=== PATIENT | male | born 1940 | race Caucasian/White ===

== ENCOUNTER 2017-06-30 10:09 | Inpatient (IN) ==
[2017-06-30] MEDS ORDERED: PANTOPRAZOLE 40 MG VIAL IV ONE ×2 (10:15→13:27)
[2017-06-30] MEDS ORDERED: 0.9 % SODIUM CHLORIDE 1,000 ML IV ONE (10:16)
[2017-06-30] MEDS ORDERED: 0.9 % SODIUM CHLORIDE 250 ML IV SCH ×3 (10:30→14:00)
[2017-06-30] MEDS ORDERED: LIDOCAINE JEL 2% 1 TUBE 30GM TOPICAL ONE (10:33)
--- NOTE | 2017-06-30 10:52 | XRay Report ---
CLINICAL INFORMATION: Hematemesis. Black stools. TECHNIQUE: AP supine and left lateral decubitus abdomen COMPARISON: None. FINDINGS: There is a dialysis catheter within the abdomen. There is a large gauge right central venous catheter with its tip in the right atrium Bowel gas pattern is unremarkable. No mechanical small bowel obstruction. No biliary or portal venous gas. No pneumoperitoneum. There is extensive vascular calcification consistent with diabetes in this patient with renal failure. IMPRESSION: 1. Negative bowel gas pattern. No mechanical small bowel obstruction 2. No acute or focal abnormality. Interpreted and Authenticated by: Jose Eduardo Jones 06/30/17
[2017-06-30 10:57] LABS: Basophils # (Auto) 0 K/mcL (0.0-0.3); Basophils % (Auto) 0.2 % (0.0-2.0); Eosinophils # (Auto) 0.2 K/mcL (0.0-0.7); Eosinophils % (Auto) 2.2 % (0.0-7.0); Granulocytes % (Auto) 71.2 % (38.0-78.0); Lymphocytes # (Auto) 1.6 K/mcL (1.5-4.8); Lymphocytes % (Auto) 19.6 % (15.5-49.0); Mean Cell Volume 98.2 fL (80.0-100.0); Mean Corpuscular HGB Conc 32.5 g/dL (31.0-36.0); Mean Corpuscular Hemoglobin 31.9 pg (26.0-34.0); Monocytes # (Auto) 0.6 K/mcL (0.1-0.9); Monocytes % (Auto) 6.8 % (1.0-12.0); Platelet Count 173 K/mcL (140-440); RBC 2.51 M/mcL (4.50-5.90)
--- NOTE | 2017-06-30 11:05 | Emergency Department Note ---
GI Bleed HPI - General Chief complaint: Rectal Bleed Stated complaint: blood in stools, vomiting blood Time Seen by Provider: 06/30/17 11:03 Source: EMS Mode of arrival: wheelchair - History of Present Illness HPI Narrative: Patient has been having episodes of melena yesterday stools have been dark. This morning he vomited up some coffee-ground emesis one time... States sent to [place] in the spring and was given 3 units of blood at that time but they did not find the source of the bleed. He said 4 years ago he had a GI UAC in which they found a lesion in his stomach for years ago. Is not having any abdominal pain but is feeling nauseous. He has had melena 24 hours one episode of hematemesis. Is a history of chronic kidney disease is on dialysis they are planning on trying to do dialysis at home today and I make that appointment. todays hemoglobinis 8.0 hematocrit 24.7 previous hemoglobin reveals in the 5 and 6 range. in 2014,,. Stools are guiac positive today. - Related Data Home Medications Medication Instructions Recorded Confirmed cyanocobalamin (vit B-12) 2,500 2,500 mcg SUBLINGUAL QDAY tab 12/07/14 05/06/17 mcg sublingual tablet glucosamine HCl 1,500 mg tablet 1,500 mg PO QDAY 08/13/15 05/06/17 acetaminophen 500 mg tablet 1,000 mg PO Q6H PRN 05/01/16 05/06/17 carvedilol 25 mg tablet 25 mg PO BID 05/01/16 05/06/17 clopidogrel 75 mg tablet 75 mg PO QDAY 01/19/17 05/06/17 lisinopril 2.5 mg tablet 2.5 mg PO QDAY 01/19/17 05/06/17 omega-3 fatty acids 1,000 mg 1,000 mg PO QDAY 01/19/17 05/06/17 capsule Aspirin [Lo-Dose Aspirin EC] 81 mg PO DAILY 05/06/17 05/06/17 Levothyroxine [Synthroid] 50 mcg PO DAILY 05/06/17 05/06/17 Previous Rx's Medication Instructions Recorded Walking Cart #1 each 12/29/16 atorvastatin 10 mg tablet 10 mg PO QDAY #90 tab 02/17/17 Ciprofloxacin [Cipro] 250 mg PO DAILY #9 tab 05/06/17 furosemide 80 mg tablet 80 mg PO QDAY #90 tab 05/06/17 vitamin B complex-vitamin C 100 1 tab-cap PO QDAY #90 tab 05/06/17 mg-folic acid 1 mg tablet tamsulosin 0.4 mg capsule 0.4 mg PO QDAY #30 cap 05/07/17 Allergies Allergy/AdvReac Type Severity Reaction Status Date / Time No Known Drug Allergies Allergy Verified 05/06/17 16:08 Review of Systems All systems ED: reviewed and negative except as stated. Gastrointestinal: Reports: nausea, melena, hematemesis. Denies: vomiting, diarrhea, constipation, hematochezia Genitourinary: Denies: dysuria, frequency, urgency Musculoskeletal: Denies: back pain, joint swelling Integumentary: Denies: rash, lesions Neurological: Denies: headache, weakness Psychiatric: Denies: anxiety, depression Endocrine: Denies: fatigue Hematological/Lymphatic: Denies: easy bleeding Allergic/Immunologic: Denies: facial swelling Past Medical History - Past Medical History Medical history: Reports: arthritis, cancer, CHF, DM, GI bleed, hyperlipidemia, hypertension, renal disease, thyroid disease, valvular heart disease Surgical history ED: Reports: other (Mitral heart valve repair) - Social History smoking status: Never smoker Alcohol use: Reports: None Drug use: Reports: none Physical Exam Limitations: no limitations General appearance: alert Head: atraumatic, normocephalic Eye: Present: normal appearance, PERRL. Absent: EOMI, scleral icterus ENT: normal exam, normal oropharynx, mucous membranes moist Neck: Present: normal inspection, full ROM. Absent: trachea midline Chest: Present: normal inspection, symmetric chest wall rise. Absent: tenderness Respiratory: Present: normal lung sounds bilaterally, respiratory distress. Absent: wheezes Cardiovascular: Present: regular rate, normal rhythm. Absent: bradycardia, tachycardia Abdominal: Present: soft, distention. Absent: tenderness, guarding, rebound Rectal: Present: normal inspection, heme (+) stool Extremities: Present: normal inspection, full ROM. Absent: tenderness Back: Present: normal inspection, full ROM Neurological: Present: alert, oriented X3, CN II-XII intact Psychiatric: Present: normal affect, normal mood. Absent: depressed, agitated Course Vital Signs Temperature 97.8 F 01/09/18 10:10 Pulse Rate 117 H 06/30/17 10:10 Respiratory Rate 26 H 06/30/17 10:10 Blood Pressure 105/69 06/30/17 10:10 Pulse Oximetry (%) 98 06/30/17 10:10 Temperature 97.8 F 06/30/17 10:10 Pulse Rate 115 H 06/30/17 10:17 Respiratory Rate 29 H 06/30/17 10:18 Blood Pressure 90/64 06/30/17 10:18 Pulse Oximetry (%) 100 06/30/17 10:17 GI Bleed - MDM Narrative Medical decision making narrative: Hemoglobin is 8.0 it has been lower previously in the past. Tariq here to consult as well. She recommended that we give 2 units packed RBCs. The guaiac stool was positive, he has had hematemesis. hx of a gastric lesion in the past. having some midepigastric pain. black stools a coffee ground vomitus one time this am. Hospitalist Dr Charles butt is here for admission. Dr Fletcher consulted and will consult and do egd this afternoon. - Lab Data Result diagrams: 06/30/17 10:12 06/30/17 10:12 Lab Results 06/30/17 06/30/17 06/30/17 Range/Units 10:12 10:12 11:21 WBC 8.2 (4.5-11.0) K/mcL RBC 2.51 L (4.50-5.90) M/mcL Hgb 8.0 L (13.5-16.5) g/dL Hct 24.7 L (41.0-55.0) % POC Hct 25.0 L (41.0-55.0) % MCV 98.2 (80.0-100.0) fL MCH 31.9 (26.0-34.0) pg MCHC 32.5 (31.0-36.0) g/dL RDW 17.0 H (11.5-14.5) % Plt Count 173 (140-440) K/mcL MPV 9.9 (7.4-10.4) fL Gran % 71.2 (38.0-78.0) % Lymph % (Auto) 19.6 (15.5-49.0) % Jay % (Auto) 6.8 (1.0-12.0) % Eos % (Auto) 2.2 (0.0-7.0) % Baso % (Auto) 0.2 (0.0-2.0) % Gran # 5.9 (1.8-8.0) K/mcL Lymph # (Auto) 1.6 (1.5-4.8) K/mcL Jay # (Auto) 0.6 (0.1-0.9) K/mcL Eos # (Auto) 0.2 (0.0-0.7) K/mcL Baso # (Auto) 0 (0.0-0.3) K/mcL POC Sodium 139 (133-145) mmol/L Sodium 139 (133-145) mmol/L POC Potassium 4.6 (3.3-5.1) mmol/L Potassium 4.8 (3.3-5.1) mmol/L POC Chloride 96 (96-108) mmol/L Chloride 94 L (96-108) mmol/L Carbon Dioxide 24 (22-30) mmol/L POC Total CO2 27 (22-30) mmol/L Anion Gap 21.0 H (8-16) POC BUN 102 H* (8-23) mg/dl BUN 101 H* (8-23) mg/dl Creatinine 7.2 H* (0.7-1.2) mg/dl POC Creatinine 7.7 H* (0.7-1.2) mg/dl GFR Calculation 7 Glucose 234 H (70-105) mg/dL POC Glucose 231 H (70-105) mg/dL Calcium 8.8 (8.6-10.4) mg/dl POC WB Ioniz Calcium 1.10 L (1.16-1.32) mmol/L Total Bilirubin 0.5 (0.0-1.0) mg/dL AST 8 (0-37) U/l ALT 7 (0-40) U/l Alkaline Phosphatase 62 (39-117) U/L Total Protein 6.3 (5.9-8.4) gm/dL Albumin 3.3 (3.2-5.2) gm/dL Globulin 3.0 (2.2-3.7) gm/dL Albumin/Globulin Ratio 1.1 (1.0-2.3) Lipase 39 (7-60) U/L Urine Color Yellow Urine Appearance Turbid Urine pH 7.0 (5.0-9.0) Ur Specific [place] 1.017 (1.000-1.035) Urine Protein >=500 (<25) mg/dL Urine Glucose (UA) Norm (NORM) mg/dL Urine Ketones Neg mg/dL Urine Occult Blood 250 A (<5) mukul/mcL Urine Nitrate Pos (NEG) Urine Bilirubin Neg (NEG) mg/dL Urine Urobilinogen Norm (NORM) mg/dL Ur Leukocyte Esterase 2+ A (NEG) /mcL Urine RBC 64 H (0-1) /hpf Urine WBC > 182 H (0-4) /hpf Ur Squamous Epith Cells 0 (0-4) /hpf Urine Bacteria 0 (0) /hpf Ur Culture Indicated? Yes Disposition Pt seen by P[employer] MECH[employer]IC/PA only: No Clinical Impression: GI bleed Disposition: Xfer As Inpt ([facility] Condition: Fair Referrals: Oksana Potter MD [Primary Care Provider] -
[2017-06-30 11:16] LABS: ALT/SGPT 7 U/l (0-40); Albumin 3.3 gm/dL (3.2-5.2); Albumin/Globulin Ratio 1.1 (1.0-2.3); Alkaline Phosphatase 62 U/L (39-117); Blood Urea Nitrogen 101 mg/dl (8-23); Lipase 39 U/L (7-60)
[2017-06-30 11:49] LABS: Appearance,Urine TURBID; Bilirubin,Urine NEG (NEG); Color,Urine YELLOW; Glucose,Urine (UA) NORM (NORM); Leukocyte Esterase,Urine 2+ /mcL (NEG); Nitrate,Urine POS (NEG); Protein,Urine >=500 mg/dL (<25); Specific Gravity,Urine 1.017 (1.000-1.035); Urine Blood 250 ery/mcL (<5); Urobilinogen,Urine NORM (NORM)
[2017-06-30 11:51] LABS: Bacteria,Urine 0 /hpf (0); Urine RBC 64 /hpf (0-1); Urine Squamous Epithelial Cell 0 /hpf (0-4); Urine WBC > 182 /hpf (0-4)
--- NOTE | 2017-06-30 12:59 | XRay Report ---
INDICATION: Dyspnea TECHNIQUE: AP chest x-ray,portable upright COMPARISON: Chest x-rays dated 12/14/2016, 06/02/2016 FINDINGS:Large caliber right central venous catheter in the right atrium. Patient is on hemodialysis. Previous median sternotomy. There is a prosthetic cardiac valve. Lungs are negative. No parenchymal infiltrate or mass. Heart size and vascularity are normal. No pulmonary edema. No pulmonary congestion. There is mild cardiomegaly, unchanged. No pleural fluid IMPRESSION: 1. Mild cardiomegaly. No pulmonary edema or pulmonary congestion 2. No acute abnormality. No interval change Interpreted and Authenticated by: Jose Eduardo Jones 06/30/17
[2017-06-30] MEDS ORDERED: cefTRIAXone 1 GM VIAL IV SCH (13:15)
[2017-06-30] MEDS ORDERED: ONDANSETRON 4 MG/2 ML VIAL IV PRN (13:27)
[2017-06-30] MEDS ORDERED: PANTOPRAZOLE 80 MG in 0.9 % SODIUM CHLORIDE 100 ML IV SCH (14:00)
[2017-06-30] MEDS ORDERED: 0.9 % SODIUM CHLORIDE 10 ML SYRINGE IV SCH (14:00)
[2017-06-30] MEDS ORDERED: VASOPRESSIN 20 UNIT in DEXTROSE 5% IN WATER 99 ML IV SCH (14:00)
[2017-06-30] MEDS ORDERED: MIDAZOLAM 2 MG/2 ML VIAL IV SCH ×2 (14:15→15:30)
[2017-06-30] MEDS ORDERED: PROPOFOL 200 MG/20 ML VIAL IV SCH ×2 (14:15→15:30)
[2017-06-30] MEDS ORDERED: KETAMINE 10 MG/ML ML IV PRN (15:18)
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
[2017-06-30] MEDS ORDERED: MIDAZOLAM 2 MG/2 ML VIAL ONE (15:31)
[2017-06-30] MEDS ORDERED: PROPOFOL 20 ML IV ONE (15:31)
[2017-06-30] MEDS ORDERED: KETAMINE 100 MG/ML ML IV ONE (15:55)
--- NOTE | 2017-06-30 17:08 | Death Note ---
Discharge Sum: Prov - Provider Patient information: Note initiated : 06/30/17 at 5:06 pm Service Date, if different from initiated Date: [] Patient: Lopez Romeo 77 y/o M admitted on 06/30/17 for blood in stools, vomiting blood. Primary care physician: Oksana Potter Consults: 06/30/17 12:09 Consult to Physician [CONS] Stat Comment: Consulting Provider: Oksana Potter Reason For Exam: Physician to Consult Consult to Physician [CONS] Stat Comment: Consulting Provider: Jose Eduardo Fletcher Reason For Exam: Physician to Consult 06/30/17 12:15 Consult to Physician [CONS] Stat Comment: Consulting Provider: Edu Soto Reason For Exam: Physician to Consult Discharge Sum: Diag - PCOD Cause of : Gastrointestinal hemorrhage Discharge Sum: Summary - Date and Time Date of admission: 06/30/17 13:23 Date of : 06/30/17 Time of : 16:18 - Summary Details: SUMMARY: 77-year-old male with endstage kidney disease, on peritoneal dialysis presented with following problems: + HEMATEMESIS AND MELENA Most likely UGI with concurrent uremic coagulopaty and PlAvix use. Remote history of NSAIDS overuse and GIB RBC started in ED Protonix IV given in ED, AND pROTONIX GTT started + ESRD + S/P MVR. Still has significant MR. THIS H/P WAS IN PROGRESS PATIENT WENT INTO CP ARREST WHILE UNDERGOING EGD. LARGE BLOOD CLOTS WERE ENCOUNTERED IN THE AIRWAYS. IMMEDIATE CPR WAS PERFORMED. INITIAL RHYTHM WAS ASYSTOLE. SEVERAL DOSAGES OF EPINEPHRINE WAS ADMINISTERED. RHYTHM CHECK REVEALED SINUS BRADYCARDIA. NO PULSE PRESENT, DURING ANY OF THE PULSE CHECKS. CPR DISCONTINUED AFTER ABOUT 28 MINUTES. PATIENT PRONOUNCED AT 16:18. I WAS PRESENT AT THE CODE, BUT DR GROVES WAS FILLER AND TRIMMER. CAUSE OF : GI HEMORRHAGE WITH ASPIRATION OF BLOOD CLOTS RESULTING IN CARDIOPULMONARY ARREST. WAS PRESENT IN WAITING ROOM WHILE CPR IN PROGRESS AND WAS REGULARLY UPDATED ON CONDITION OF PATIENT. NO AUTOPSY WAS REQUESTED. - Additional Data Attending physician: Edu Soto MD
--- NOTE | 2017-06-30 17:37 | Nephrology Consult Note ---
History of Present Illness - Reason for Consult Patient information: Note initiated : 06/30/17 at 5:33 pm Service Date, if different from initiated Date: [] Patient: Lopez Romoe 77 y/o M admitted on 06/30/17 for blood in stools, vomiting blood. Chief Complaint: [] Consult date: 06/30/17 end stage renal disease Requesting physician: Juno Daley - Chief Complaint hematemesis - History of Present Illness Patient is 77 y/o white male with PMH of ESRD on HD who presented to ER with hematemesis and winter that started this am Patient had one episode of winter followed by one episode of profuse hematemesis and hence presented to ER He has h/o GI bleed 2-3 yrs ago when he had Hb of 5.0. Patient denied SOB, CP he did have LE edema Patient on eval was noted to have Hb of 8.0, BUN of 103, he was mildly hypotensive (baseline BP is around 90-100 systolic) and tachycardic Patient was initiated on PRBC transfusion and he was admitted to ICU he continued to have hypotension, he was getting EGD done when he has respiratory arrest followed by PEA He received CPR for 20 min with no return of cardiac rhyhtm and this was called off Patient from profuse GI bleed Review of Systems All systems PM: reviewed and no additional remarkable complaints except as stated (as in HPI) Past History Past medical history: ESRD on HD was transitioning to PD HTN DM type 2 MM anemia of CKD chf, SEVERE MR, EF of 30% secondary hyperparathyroidism dyslipidemia previous history of GI bleed Past surgical history: AVF s/p TCC placement s/p PD cath placement Past family history: not pertinent Past social history: live with his retired no addictions Medications and Allergies Home Medications Medication Instructions Recorded Confirmed Type cyanocobalamin (vit B-12) 2,500 2,500 mcg SUBLINGUAL QDAY tab 12/07/14 History mcg sublingual tablet glucosamine HCl 1,500 mg tablet 1,500 mg PO QDAY 08/13/15 05/06/17 History acetaminophen 500 mg tablet 1,000 mg PO Q6H PRN 05/01/16 05/06/17 History carvedilol 25 mg tablet 25 mg PO BID 05/01/16 05/06/17 History Walking Cart #1 each 12/29/16 01/19/17 Rx clopidogrel 75 mg tablet 75 mg PO QDAY 01/19/17 05/06/17 History lisinopril 2.5 mg tablet 2.5 mg PO QDAY 01/19/17 05/06/17 History omega-3 fatty acids 1,000 mg 1,000 mg PO QDAY 01/19/17 05/06/17 History capsule atorvastatin 10 mg tablet 10 mg PO QDAY #90 tab 02/17/17 05/06/17 Rx Aspirin [Lo-Dose Aspirin EC] 81 mg PO DAILY 05/06/17 05/06/17 History Ciprofloxacin [Cipro] 250 mg PO DAILY #9 tab 05/06/17 Rx Levothyroxine [Synthroid] 50 mcg PO DAILY 05/06/17 05/06/17 History furosemide 80 mg tablet 80 mg PO QDAY #90 tab 05/06/17 05/06/17 Rx vitamin B complex-vitamin C 100 1 tab-cap PO QDAY #90 tab 05/06/17 05/06/17 Rx mg-folic acid 1 mg tablet tamsulosin 0.4 mg capsule 0.4 mg PO QDAY #30 cap 05/07/17 Rx Allergies Allergy/AdvReac Type Severity Reaction Status Date / Time No Known Drug Allergies Allergy Verified 05/06/17 16:08 Exam - Vital Signs Vital signs: Temp Pulse Resp BP Pulse Ox 97.0 F 122 H 35 H 89/63 100 06/30/17 15:32 06/30/17 15:32 06/30/17 15:32 06/30/17 15:32 06/30/17 15:32 - General Appearance General appearance: appears started age, chronically ill, frail EENT: mucous membranes moist Neck: no JVD Respiratory: clear (tachypneic ) Cardiology: no rub, edema, rapid rhythm, irregular rhythm Gastrointestinal: no tenderness, no guarding Integumentary: no rash, warm and dry Neurologic: alert and oriented x3 Musculoskeletal: no cyanosis, no clubbing Psychiatric: mood/affect appropriate Results - Lab Results 06/30/17 10:12 06/30/17 10:12 Most recent lab results Calcium 8.8 mg/dl (8.6-10.4) 06/30/17 10:12 Assessment and Plan (1) ESRD (end stage renal disease) on dialysis Patient with profound GI bleed unfortunately had cardiac arrest during EGD and could not be resuscitated despite all our efforts discussed patient;s condition multiple times with his family Status: Acute (2) GI bleed Status: Acute
--- NOTE | 2017-07-01 07:21 | Operative Note ---
DATE OF OPERATION: 06/30/2017 PROCEDURE: Esophagogastroscopy. TAX EVALUATOR AND VP OF MARKETING: Jose Eduardo Fletcher MD ANESTHETIC USED: Propofol 60 mg IV and versed 1 mg IV. PREOPERATIVE DIAGNOSIS: Patient is known to me from about 3 years ago when I performed endoscopy on him for a major upper GI bleed. He is known to have chronic renal failure and has been on hemodialysis regularly. He also has underlying rheumatoid arthritis. Three years ago he had hemoglobin down to 4.9, associated with a major GI bleed. 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 The patient began having hematemesis and melena early this morning when he first woke up. This occurred several times before presentation to the Emergency Room. His initial hemoglobin was 8. BUN and creatinine markedly elevated associated with his chronic renal failure and perhaps presence of blood in the gut. The patient was admitted to the intensive care unit. When I arrived this afternoon the patient was passing large quantities of burgundy stool per rectum. He was tachycardic, awake and alert. He recalled me from prior endoscopy. All the risks of the procedure were described to the patient, and the intent of the procedure to intervene for control of bleeding was described to the patient who agreed to proceed. POSTOPERATIVE DIAGNOSIS: Patient has obvious massive upper GI bleed. I had to remove the scope because the large clots completely occluded my scope. Therefore I could not suction the blood out of the stomach fast enough. The scope was removed, but then before I could even reinsert the scope, the patient had rapid desaturation of his oxygen. He had clots that prevented adequate ambu bag ventilation. He proceeded to respiratory arrest with bradycardia that quickly led to asystole. Cardiac CODE was called. Cardiac compressions were started immediately but despite the efforts of the CODE team and despite eventually getting the patient intubated, the only electrical activity that could be restored was pulseless. After a prolonged and dedicated effort to resuscitate the patient, he was pronounced. CONSENT: Prior to the procedure, the patient provided his own informed consent. The patient was evaluated and considered fit for endoscopy in the ICU. DESCRIPTION OF PROCEDURE: With the patient in the left lateral decubitus position, the gastroscope was advanced via the mouth to the esophagus. I noted within the mouth that there was fresh blood in the pharynx. I suctioned this out as best I could. The scope was advanced into the esophagus. Fresh blood was seen rapidly regurgitating into the esophagus from the stomach. I tried to suction this fresh blood as quickly as I could and through the scope. It became evident that his bleed was even more massive than I might have anticipated. The scope was advanced into the stomach where a large fresh clot was seen. There was a lot of blood in the stomach. I suctioned this out to remove about 300 to 400 mL of blood but the scope became occluded by the blood clots. At that point, I removed the scope since I could not see well enough and since there was so much occlusion of the scope. We suctioned his mouth and had some success with this but then before I could even put the scope back down into the stomach, he vomited and blood came out through his nose. It was quite a gruesome scene as we used the [employer]'s suction device and a wash cloth to physically clear his mouth and nose of blood and clots, but his oxygen saturation precipitously declined. He went into the 70 to 80% range. We tried to ambu bag him, but there was not a good airway to transmit the ventilations. His pulse degenerated to a bradycardia and then to asystole. A CODE was called. Compressions were begun immediately. We continued efforts to clear his airway with only modest success at best. Intubation was achieved after technical difficulty. Even with the intubation in place; however, the anesthesiology personnel could not ventilate the patient. I had to continuously suction the endotracheal tube. ACLS protocol was instituted. Prolonged efforts ultimately, however, were not successful. He went from asystole to pulseless electrical activity but we never could restore a pulse. After approximately 20 or 25 minutes of coding, the CODE was terminated and the patient was pronounced. COMPLICATIONS: Cardiac arrest, probably due to massive GI bleeding with exsanguination and with aspiration causing respiratory arrest. In fact, I think the respiratory arrest probably triggered the chain of events described. I also suspect that he may well have had another Dieulafoy bleed as he did back in 2013. From what I saw of his esophagus today he did not have varices. I did not see a Rebecca-Gil tear. The appearance of the large amount of blood in the stomach was reminiscent of the photographs that I reviewed from 2014 when he had a massive GI bleed then. BRENNA:tika Job ID: [id number] Doc ID: [id number] Jose Eduardo Potter MD
[2017-07-01] MEDS ORDERED: cefTRIAXone 1 GM VIAL IV SCH (13:15)
== END 2017-06-30 19:14 | disposition expired | DRG 377 ==
LOC: ED 10:09 → ICU 13:20
PROVIDERS: ADMIT Specialist; ATTEND Specialist